=== PATIENT | male | born 1960 ===

== ENCOUNTER 2023-12-27 08:54 | Outpatient (CLI) | payer BC, SELFPAY ==
--- NOTE | 2023-12-27 09:15 | FL_ITS ---
Patient: RAY PIPER Facility:?[facility] Patient ID:?[id number] Site Patient ID:?[id number]. Site :?[id number] Study:?XRay-Abdomen Upper GI W/AIR SBFT to READ-12/27/2023 11:47:54 AM Ordering Physician:MUNIR Final Report: Technique: Double-contrast upper GI/small bowel follow-through performed after the uneventful administration of effervescent crystals and thick barium followed by thin barium. Fluoroscopy time 2 minutes 13 seconds. Indication: LOWER ABDOMINAL PAIN Comparison: Outside CT report Findings: Swallowing mechanism: Normal. Esophageal motility: Normal. Gastroesophageal reflux: None. Hernia: None. Esophagus, stomach and duodenal bulb mucosa: Normal mucosa. No stricture or mass. Small bowel loops: Multiple diverticula are present measuring up to approximately 3.9 cm. No inflammatory changes. No obstruction. The jejunum is normally located in the left upper quadrant. Normal position of the ligament of Treitz. No evidence of inflammatory bowel disease. Impression: Multiple small bowel diverticula. No inflammation or obstruction. No evidence of malrotation. Dictated by Antony Stokes MD @ 12/27/2023 12:38:33 PM Signed by:?Antony Stokes MD @12/27/2023 12:38:33 PM (Electronic Signature)
== END 2023-12-27 08:55 | disposition home or self-care (01) ==
LOC: RAD 08:59
PROVIDERS: PCP Family Medicine; Visit Provider Surgery
DX: R10.30 Lower abdominal pain, unspecified (principal); K57.90 Diverticulosis of intestine, part unspecified, without perforation or abscess without bleeding
CPT/HCPCS: 74246; 74248

== ENCOUNTER 2024-08-07 07:43 | Outpatient (CLI) | payer BC, SELFPAY ==
--- NOTE | 2024-08-07 08:00 | CRLHL7_ITS ---
For Patients: As a result of the Century Cures Act, medical imaging exams and procedure reports are released immediately into your electronic medical record. You may view this report before your referring provider. If you have questions, please contact your health care provider. INDICATION: Stomach dilation COMPARISON: None. TECHNIQUE: 1.1 mCi Tc99m sulfur colloid was administered orally in 4 oz. egg substitute, two slices of bread, 2 packs jam/jelly and 4 oz of water/juice. Images of the stomach and abdomen were obtained in the anterior and posterior projection over 240 minutes. FINDINGS: Visually there is normal gastric emptying. Geometric Mean Calculated % Activity Remainin minutes 100% 60 minutes 42% 120 minutes 7% 240 minutes 2% IMPRESSION: Normal gastric emptying. Dictated by Aram James MD @ 08/07/2024 12:53:38 PM (Electronically Signed)
== END 2024-08-07 07:44 | disposition home or self-care (01) ==
LOC: NM 07:44
PROVIDERS: PCP Family Medicine; Visit Provider Family Medicine
DX: K31.89 Other diseases of stomach and duodenum (principal)
CPT/HCPCS: 78264; A9541